=== PATIENT | male | born 1950 | race Caucasian/White ===

== ENCOUNTER → 2016-10-16 | Outpatient (CLI) | payer MEDICARE, OTHER | LOC: COL.LAB 11:13 | DX: Z01.812 Encounter for preprocedural laboratory examination (principal) ==

== ENCOUNTER → 2017-11-26 | Outpatient (CLI) | payer MEDICARE, OTHER | LOC: COL.LAB 10:31 | DX: Z96.641 Presence of right artificial hip joint (principal) ==

== ENCOUNTER → 2018-03-18 | Outpatient (CLI) | payer MEDICARE, OTHER | LOC: COL.LAB 10:13 | DX: Z96.641 Presence of right artificial hip joint (principal) ==